=== PATIENT | female | born 1965 | race African-American/Black ===

== ENCOUNTER 2016-06-30 18:19 | Emergency (ER) | payer OTHER ==
[~2016-06-30 18:19] MED LIST: ALBU6.7H INH; AMBI5TAB PO; CALA240T PO; ENOX100P SQ; HYDR25TA35 PO; LISI-587 PO; OMEP20TA39 PO; POTA10IN2 PO; PROC10TA4 PO; ZOFR8TAB PO
[2016-06-30 18:21] VITALS: BP 110/70; PULSE 74; RESP 16; TEMP 97.8; O2SAT 96
--- NOTE | 2016-06-30 19:40 | PD ---
Physical Exam Time Seen by Provider: 19:37 Narrative 50yo F c/o not sleeping x24 hours, left arm pain secondary to lymphedema. A visitor with the patient states a friend called her and said she was acting tired and almost fell when she tried to stand up. Patient admits to taking Oxycodone 5mg. Denies fever, vomiting. Patient acting lethargic in triage. VSS. Patient seen in triage. Awaiting bed placement. Data Data Last Documented VS Vital Signs Date Time Temp Pulse Resp B/P Pulse Ox O2 Delivery O2 Flow Rate FiO2 06/30/16 18:21 97.8 74 16 110/70 96 Room Air [facility] Supervised Visit with ANTIONE: Babs Mcclure Jun 30, 2016 19:40
[2016-06-30] MEDS ORDERED: SODIUM CHLOR 0.9% 1000 ML INJ 1,000 ML IV SCH (20:29)
[2016-06-30] MEDS ORDERED: SODIUM CHLORIDE 0.9% FLUSH 10 ML FLUSH IVF PRN (20:30)
--- NOTE | 2016-06-30 20:49 | PD ---
HPI Chief Complaint: Altered Mental Status Time Seen by Provider: 20:24 Travel History International Travel<30 days: No Contact w/Intl Traveler<30days: No Traveled to known affect area: No PFSH Past Medical History Cancer: Yes (BREAST) Cardiovascular Problems: Yes (MURMUR) Chemotherapy: Yes (12/2015) Diabetes: No Diminished Hearing: No Endocrine: No Genitourinary: No Hepatitis: No Hiatal Hernia: No Hypertension: Yes Immune Disorder: No Implanted Vascular Access Dvce: Yes Musculoskeletal: No Neurologic: Yes (NEUROPATHY TOES/ FINGERS) Psychiatric: No Reproductive: No Respiratory: Yes (CHRONIC BRONCHITIS) Radiation Therapy: Yes (02/2016) Seizures: Yes Thyroid Disease: No Triglycerides - High: Yes Tetanus Vaccination: Unknown Influenza Vaccination: No ?: Not LMP: 06/09/2015 : 5 Para: 4 Miscarriage: 1 Past Surgical History AICD: No Body Medical Devices: INFUSE A PORT Joint Replacement: No Pacemaker: No Other Surgery: Yes (L breast lumpectomy- 2015, R CHEST PORT PLACEMENT) Social History Alcohol Use: No Tobacco Use: No Substance Use: No Allergies-Medications (Allergen,Severity, Reaction): Coded Allergies: No Known Allergies (Verified , 06/30/16) Reported Meds & Prescriptions Reported Meds & Active Scripts Active Reported Verapamil ER 24 HR (Verapamil HCl) 240 Mg Tab 240 Mg PO HS Ventolin Hfa 18 GM Inh (Albuterol Sulfate) 90 Mcg/Act Aer 2 Puff INH Q6H PRN Hydralazine (Hydralazine HCl) 25 Mg Tab 25 Mg PO DAILY Take with a meal Zolpidem (Zolpidem Tartrate) 10 Mg Tab 10 Mg PO HS Mirtazapine 45 Mg Tab 45 Mg PO HS Xarelto (Rivaroxaban) 20 Mg Tab 20 Mg PO DAILY Omeprazole 20 Mg Tab 20 Mg PO DAILY Zestoretic (Lisinopril-Hctz) 20-25 Mg Tab 1 Tab PO BID Oxycodone (Oxycodone HCl) 5 Mg Tab 5 Mg PO Q6HR PRN Ibuprofen 600 Mg Tab 600 Mg PO BID D3 Super Strength (Cholecalciferol) 2,000 Unit Cap 2,000 Units PO DAILY Imitrex (Sumatriptan Succinate) 25 Mg Tab 25 Mg PO AT ONSET OF MH PRN If a satisfactory response has not been obtained at 2 hours, a second dose may be administered Topiramate 50 Mg Tab 150 Mg PO BID Lamictal (Lamotrigine) 150 Mg Tab 150 Mg PO BID Ferrous Gluconate 240 Mg Tab 960 Mg PO DAILY Data Data Last Documented VS Vital Signs Date Time Temp Pulse Resp B/P Pulse Ox O2 Delivery O2 Flow Rate FiO2 06/30/16 20:58 100 Room Air 06/30/16 20:27 15 06/30/16 18:21 97.8 74 110/70 Orders Electrocardiogram (06/30/16 20:29) Complete Blood Count With Diff (06/30/16 20:29) Comprehensive Metabolic Panel (06/30/16 20:29) Creatine Kinase (Cpk) (06/30/16 20:29) Prothrombin Time / Inr (Pt) (06/30/16 20:29) Act Partial Throm Time (Ptt) (06/30/16 20:29) Troponin I (06/30/16 20:29) Thyroid Stimulating Hormone (06/30/16 20:29) Urinalysis - C+S If Indicated (06/30/16 20:29) Ua Includes Microscopic (06/30/16 20:29) Chest, Single Ap (06/30/16 20:29) Ct Brain W/O Iv Contrast(Rout) (06/30/16 20:29) Blood Glucose (06/30/16 20:29) Ecg Monitoring (06/30/16 20:29) Iv Access Insert/Monitor (06/30/16 20:29) Oximetry (06/30/16 20:29) Sodium Chloride 0.9% Flush (Ns Flush) (06/30/16 20:30) Sodium Chlor 0.9% 1000 Ml Inj (Ns 1000 M (06/30/16 20:29) Drug Screen, Random Urine (06/30/16 20:29) Alcohol (Ethanol) (06/30/16 20:29) Salicylates (Aspirin) (06/30/16 20:29) Tylenol (Acetaminophen) (06/30/16 20:29) Ed Urine Pregnancytest Poc (06/30/16 20:29) Topiramate (Topamax) (06/30/16 21:47) Heparin Central Flush (Heparin Central F (07/01/16 00:00) Labs Laboratory Tests Test 4/13/17 4/13/17 20:41 20:53 Urine Color YELLOW Urine Turbidity CLEAR Urine pH 7.5 Urine Specific [place] 1.019 Urine Protein NEG mg/dL Urine Glucose (UA) NEG mg/dL Urine Ketones NEG mg/dL Urine Occult Blood NEG Urine Nitrite NEG Urine Bilirubin NEG Urine Urobilinogen LESS THAN 2.0 MG/DL Urine Leukocyte Esterase TRACE Urine RBC LESS THAN 1 /hpf Urine WBC 4 /hpf Urine Squamous Epithelial <1 /hpf Cells Microscopic Urinalysis Comment CATH-CULT NOT IND Urine Opiates Screen NEG Urine Barbiturates Screen NEG Urine Amphetamines Screen NEG Urine Benzodiazepines Screen NEG Urine Cocaine Screen NEG Urine Cannabinoids Screen NEG White Blood Count 6.5 TH/MM3 Red Blood Count 4.14 MIL/MM3 Hemoglobin 8.5 GM/DL Hematocrit 27.7 % Mean Corpuscular Volume 67.0 FL Mean Corpuscular Hemoglobin 20.4 PG Mean Corpuscular Hemoglobin 30.5 % Concent Red Cell Distribution Width 19.6 % Platelet Count 144 TH/MM3 Mean Platelet Volume 8.8 FL Neutrophils (%) (Auto) 70.5 % Lymphocytes (%) (Auto) 20.7 % Monocytes (%) (Auto) 7.9 % Eosinophils (%) (Auto) 0.6 % Basophils (%) (Auto) 0.3 % Neutrophils # (Auto) 4.6 TH/MM3 Lymphocytes # (Auto) 1.3 TH/MM3 Monocytes # (Auto) 0.5 TH/MM3 Eosinophils # (Auto) 0.0 TH/MM3 Basophils # (Auto) 0.0 TH/MM3 CBC Comment AUTO DIFF Differential Comment AUTO DIFF CONFIRMED Target Cells 1+ Acanthocytes OCC Prothrombin Time 11.4 SEC Prothromb Time International 1.0 RATIO Ratio Activated Partial 27.1 SEC Thromboplast Time Sodium Level 141 MEQ/L Potassium Level 3.6 MEQ/L Chloride Level 109 MEQ/L Carbon Dioxide Level 25.4 MEQ/L Anion Gap 7 MEQ/L Blood Urea Nitrogen 21 MG/DL Creatinine 1.11 MG/DL Estimat Glomerular Filtration 63 ML/MIN Rate Random Glucose 101 MG/DL Calcium Level 8.8 MG/DL Total Bilirubin 0.4 MG/DL Aspartate Amino Transf 14 U/L (AST/SGOT) Alanine Aminotransferase 20 U/L (ALT/SGPT) Alkaline Phosphatase 61 U/L Total Creatine Kinase 101 U/L Troponin I LESS THAN 0.02 NG/ML Total Protein 7.7 GM/DL Albumin 3.7 GM/DL Thyroid Stimulating Hormone 0.875 uIU/ML 3rd Gen Salicylates Level LESS THAN 1.7 MG/DL Acetaminophen Level LESS THAN 2.0 MCG/ML Ethyl Alcohol Level LESS THAN 3 MG/DL Myles Melendez MD Jun 30, 2016 20:49
[2016-06-30 20:58] VITALS: O2SAT 100
[2016-06-30] MEDS ORDERED: TOPI1TAB36 PO (21:08)
[2016-06-30] MEDS ORDERED: IMIT25TA PO (21:08)
[2016-06-30] MEDS ORDERED: LAMO150 PO (21:08)
[2016-06-30] MEDS ORDERED: FERR240T PO (21:08)
[2016-06-30 21:12] LABS: AUTOMATED NEUTROPHIL # 4.6 TH/MM3 (1.8-7.7); BASOPHIL % 0.3 % (0.0-2.0); EOSINOPHIL % 0.6 % (0.0-4.0); HEMATOCRIT 27.7 % (35.0-46.0); LYMPH % 20.7 % (9.0-44.0); LYMPHOCYTE # 1.3 TH/MM3 (1.0-4.8); MEAN CORPUSCULAR HEMOGLOBIN 20.4 PG (27.0-34.0); MEAN CORPUSCULAR HGB CONC 30.5 % (32.0-36.0); MONO % 7.9 % (0.0-8.0); NEUT % 70.5 % (16.0-70.0); PLATELET COUNT 144 TH/MM3 (150-450); RED BLOOD COUNT 4.14 MIL/MM3 (4.00-5.30); RED CELL DISTRIBUTION WIDTH 19.6 % (11.6-17.2); WHITE BLOOD COUNT 6.5 TH/MM3 (4.0-11.0)
[2016-06-30 21:12] LABS: BLOOD, URINE NEG (NEG); GLUCOSE,URINE NEG (NEG); KETONE, URINE NEG (NEG); NITRITE,URINE NEG (NEG); PH, URINE 7.5 (5.0-8.5); SQUAMOUS EPITHELIAL CELL URINE <1 /hpf (0-5); URINE COLOR YELLOW (YELLW/STRAW)
[2016-06-30] MEDS ORDERED: XARE20TA PO (21:14)
[2016-06-30] MEDS ORDERED: CHOL20005 PO (21:14)
[2016-06-30] MEDS ORDERED: ZOLP10TA3 PO (21:14)
[2016-06-30] MEDS ORDERED: IBUP-232 PO (21:14)
[2016-06-30] MEDS ORDERED: OMEP20TA PO (21:14)
[2016-06-30] MEDS ORDERED: VENTAER INH (21:14)
[2016-06-30] MEDS ORDERED: MIRT45TA PO (21:14)
[2016-06-30] MEDS ORDERED: HYDR25TA35 PO (21:14)
[2016-06-30] MEDS ORDERED: LISI-587 PO (21:14)
[2016-06-30] MEDS ORDERED: OXYC-392 PO (21:14)
[2016-06-30] MEDS ORDERED: VERA1TAB17 PO (21:15)
[2016-06-30 21:16] LABS: HEMO FLAGS AUTO DIFF
[2016-06-30 21:17] LABS: COMMENT (UR) CATH-CULT NOT IND; CULTURE IF INDICATED CATH CULTURE NOT IND
[2016-06-30 21:18] LABS: AMPHETAMINE, URINE NEG (NEG); BARBITURATES, URINE NEG (NEG); COCAINE, URINE NEG (NEG)
[2016-06-30 21:24] LABS: APTT (PATIENT) 27.1 SEC (24.3-30.1); PROTHROMBIN TIME - PATIENT 11.4 SEC (9.8-11.6)
--- NOTE | 2016-06-30 21:28 | RADRPT ---
EXAM DATE/TIME: 06/30/2016 20:54 [facility] COMPARISON: CHEST SINGLE AP, July 15, 2015, 14:40. INDICATIONS : Short of breath. MEDICAL HISTORY : Carcinoma, breast. SURGICAL HISTORY : port placement ENCOUNTER: Initial ACUITY: 1 day PAIN SCORE: 3/10 LOCATION: Bilateral upper chest FINDINGS: A single view of the chest demonstrates the lungs to be symmetrically aerated without evidence of mas s, infiltrate or effusion. The cardiomediastinal contours are unremarkable. Osseous structures are intact. A right chest port is present and is accessed. CONCLUSION: No acute disease. David Swanson MD on June 30, 2016 at 21:26 Board Certified Radiologist. This report was verified electronically.
--- NOTE | 2016-06-30 21:38 | RADRPT ---
EXAM DATE/TIME: 06/30/2016 21:23 [facility] COMPARISON: No previous studies available for comparison. INDICATIONS : Altered, cant sleep RADIATION DOSE: 47.90 CTDIvol (mGy) MEDICAL HISTORY : Aneurysm, intracranial. Breast cancer. SURGICAL HISTORY : None. ENCOUNTER: Initial ACUITY: 1 day PAIN SCALE: 0/10 LOCATION: Bilateral cranial TECHNIQUE: Multiple contiguous axial images were obtained of the head. Using automated exposure control and adj ustment of the mA and/or kV according to patient size, radiation dose was kept as low as reasonably a chievable to obtain optimal diagnostic quality images. FINDINGS: CEREBRUM: The ventricles are normal for age. No evidence of midline shift, mass lesion, hemorrhage or acute in farction. No extra-axial fluid collections are seen. POSTERIOR FOSSA: The cerebellum and brainstem are intact. The 4th ventricle is midline. The cerebellopontine angle i s unremarkable. EXTRACRANIAL: The visualized portion of the orbits is intact. SKULL: The calvaria is intact. No evidence of skull fracture. CONCLUSION: Unremarkable examination. Eliezer Duff MD on June 30, 2016 at 21:35 Board Certified Radiologist. This report was verified electronically.
[2016-06-30 21:41] LABS: ANION GAP 7 MEQ/L (5-15); AST (GOT) 14 U/L (15-37); BICARBONATE 25.4 MEQ/L (21.0-32.0); BLOOD UREA NITROGEN 21 MG/DL (7-18); CHLORIDE 109 MEQ/L (98-107); GLOMERULAR FILTRATION RATE 63 ML/MIN (>89); POTASSIUM 3.6 MEQ/L (3.5-5.1); SODIUM (NA) 141 MEQ/L (136-145)
[2016-06-30 21:52] LABS: ACETAMINOPHEN LESS THAN 2.0 MCG/ML (10.0-30.0); ALKALINE PHOSPHATASE 61 U/L (45-117); ALT (GPT) 20 U/L (10-53); CREATINE KINASE 101 U/L (26-192); TOTAL BILIRUBIN ADULT 0.4 MG/DL (0.2-1.0)
[2016-06-30 22:37] LABS: ACANTHOCYTES OCC (NORMAL); SCAN/DIFF AUTO DIFF CONFIRMED; TARGET CELLS 1+ (NORMAL)
--- NOTE | 2016-06-30 22:47 | EKG ---
Date Performed: 06/30/2016 Time Performed: 20:45:15 PTAGE: 50 years EKG: Sinus rhythm RIGHT BUNDLE BRANCH BLOCK ABNORMAL ECG PREVIOUS TRACING : 05/16/2014 14.38 No significant change from previous tracing noted. DOCTOR: Valeriano Vyas Interpretating Date/Time 06/30/2016 22:46:10
--- NOTE | 2016-06-30 23:42 | PD ---
HPI Chief Complaint: Altered Mental Status Time Seen by Provider: 20:24 Travel History International Travel<30 days: No Contact w/Intl Traveler<30days: No Traveled to known affect area: No History of Present Illness HPI Patient is a 50-year-old female with a history of breast cancer in remission presents emergency department for altered mental status. Per the friends patient was just feeling more somnolent today. Apparently the patient approximately 4 hours prior to arrival took an oxycodone which was a friends because she was having some generalized aches and pains and couldn't sleep last night. Afterwards the patient thinks she had a seizure. No seizure activity was witnessed but the patient does state that she continues to have muscle soreness which she is common after seizure. She takes Topamax as well as Lamictal for seizures. She states she's been taking his medicines. On arrival she is somewhat somnolent but answers all questions appropriately. She does not have any complaints of chest pain abdominal pain headache neck pain. She does follow with an oncologist states she's been given a clean bill of health the far as her cancer goes. PFSH Past Medical History Cancer: Yes (BREAST) Cardiovascular Problems: Yes (MURMUR) Chemotherapy: Yes (12/2015) Diabetes: No Diminished Hearing: No Endocrine: No Genitourinary: No Hepatitis: No Hiatal Hernia: No Hypertension: Yes Immune Disorder: No Implanted Vascular Access Dvce: Yes Musculoskeletal: No Neurologic: Yes (NEUROPATHY TOES/ FINGERS) Psychiatric: No Reproductive: No Respiratory: Yes (CHRONIC BRONCHITIS) Radiation Therapy: Yes (02/2016) Seizures: Yes Thyroid Disease: No Triglycerides - High: Yes Tetanus Vaccination: Unknown Influenza Vaccination: No ?: Not LMP: 06/09/2015 : 5 Para: 4 Miscarriage: 1 Past Surgical History AICD: No Body Medical Devices: INFUSE A PORT Joint Replacement: No Pacemaker: No Other Surgery: Yes (L breast lumpectomy- 2016, R CHEST PORT PLACEMENT) Social History Alcohol Use: No Tobacco Use: No Substance Use: No Allergies-Medications (Allergen,Severity, Reaction): Coded Allergies: No Known Allergies (Verified , 06/30/16) Reported Meds & Prescriptions Reported Meds & Active Scripts Active Reported Verapamil ER 24 HR (Verapamil HCl) 240 Mg Tab 240 Mg PO HS Ventolin Hfa 18 GM Inh (Albuterol Sulfate) 90 Mcg/Act Aer 2 Puff INH Q6H PRN Hydralazine (Hydralazine HCl) 25 Mg Tab 25 Mg PO DAILY Take with a meal Zolpidem (Zolpidem Tartrate) 10 Mg Tab 10 Mg PO HS Mirtazapine 45 Mg Tab 45 Mg PO HS Xarelto (Rivaroxaban) 20 Mg Tab 20 Mg PO DAILY Omeprazole 20 Mg Tab 20 Mg PO DAILY Zestoretic (Lisinopril-Hctz) 20-25 Mg Tab 1 Tab PO BID Oxycodone (Oxycodone HCl) 5 Mg Tab 5 Mg PO Q6HR PRN Ibuprofen 600 Mg Tab 600 Mg PO BID D3 Super Strength (Cholecalciferol) 2,000 Unit Cap 2,000 Units PO DAILY Imitrex (Sumatriptan Succinate) 25 Mg Tab 25 Mg PO AT ONSET OF MH PRN If a satisfactory response has not been obtained at 2 hours, a second dose may be administered Topiramate 50 Mg Tab 150 Mg PO BID Lamictal (Lamotrigine) 150 Mg Tab 150 Mg PO BID Ferrous Gluconate 240 Mg Tab 960 Mg PO DAILY Review of Systems Except as stated in HPI: all other systems reviewed are Neg Physical Exam Narrative GENERAL: Well-developed well-nourished, somnolent. SKIN: Focused skin assessment warm/dry. HEAD: Atraumatic. Normocephalic. EYES: Pupils equal and round. No scleral icterus. No injection or drainage. ENT: No nasal bleeding or discharge. Mucous membranes pink and moist. No tongue laceration. NECK: Trachea midline. No JVD. CARDIOVASCULAR: Regular rate and rhythm. No murmur appreciated. RESPIRATORY: No accessory muscle use. Clear to auscultation. Breath sounds equal bilaterally. GASTROINTESTINAL: Abdomen soft, non-tender, nondistended. Hepatic and splenic margins not palpable. MUSCULOSKELETAL: No obvious deformities. No clubbing. No cyanosis. No edema. NEUROLOGICAL: Awake and alert but somnolent. Oriented 4. Cranial nerves II through XII are grossly intact and nonfocal, 5 out of 5 strength in all 4 extremity's. Normal speech. Sensations intact. PSYCHIATRIC: Appropriate mood and affect; insight and judgment normal. Data Data Last Documented VS Vital Signs Date Time Temp Pulse Resp B/P Pulse Ox O2 Delivery O2 Flow Rate FiO2 06/30/16 20:58 100 Room Air 06/30/16 20:27 15 06/30/16 18:21 97.8 74 110/70 Orders Electrocardiogram (06/30/16 20:29) Complete Blood Count With Diff (06/30/16 20:29) Comprehensive Metabolic Panel (06/30/16 20:29) Creatine Kinase (Cpk) (06/30/16 20:29) Prothrombin Time / Inr (Pt) (06/30/16 20:29) Act Partial Throm Time (Ptt) (06/30/16 20:29) Troponin I (06/30/16 20:29) Thyroid Stimulating Hormone (06/30/16 20:29) Urinalysis - C+S If Indicated (06/30/16 20:29) Ua Includes Microscopic (06/30/16 20:) Chest, Single Ap (06/30/16 20:29) Ct Brain W/O Iv Contrast(Rout) (06/30/16 20:29) Blood Glucose (06/30/16 20:29) Ecg Monitoring (06/30/16 20:29) Iv Access Insert/Monitor (06/30/16 20:29) Oximetry (06/30/16 20:29) Sodium Chloride 0.9% Flush (Ns Flush) (06/30/16 20:30) Sodium Chlor 0.9% 1000 Ml Inj (Ns 1000 M (06/30/16 20:29) Drug Screen, Random Urine (06/30/16 20:29) Alcohol (Ethanol) (06/30/16 20:29) Salicylates (Aspirin) (06/30/16 20:29) Tylenol (Acetaminophen) (06/30/16 20:29) Ed Urine Pregnancytest Poc (06/30/16 20:29) Topiramate (Topamax) (06/30/16 21:47) Heparin Central Flush (Heparin Central F (07/01/16 00:00) Labs Laboratory Tests Test 06/30/16 06/30/16 20:41 20:53 Urine Color YELLOW Urine Turbidity CLEAR Urine pH 7.5 Urine Specific [place] 1.019 Urine Protein NEG mg/dL Urine Glucose (UA) NEG mg/dL Urine Ketones NEG mg/dL Urine Occult Blood NEG Urine Nitrite NEG Urine Bilirubin NEG Urine Urobilinogen LESS THAN 2.0 MG/DL Urine Leukocyte Esterase TRACE Urine RBC LESS THAN 1 /hpf Urine WBC 4 /hpf Urine Squamous Epithelial <1 /hpf Cells Microscopic Urinalysis Comment CATH-CULT NOT IND Urine Opiates Screen NEG Urine Barbiturates Screen NEG Urine Amphetamines Screen NEG Urine Benzodiazepines Screen NEG Urine Cocaine Screen NEG Urine Cannabinoids Screen NEG White Blood Count 6.5 TH/MM3 Red Blood Count 4.14 MIL/MM3 Hemoglobin 8.5 GM/DL Hematocrit 27.7 % Mean Corpuscular Volume 67.0 FL Mean Corpuscular Hemoglobin 20.4 PG Mean Corpuscular Hemoglobin 30.5 % Concent Red Cell Distribution Width 19.6 % Platelet Count 144 TH/MM3 Mean Platelet Volume 8.8 FL Neutrophils (%) (Auto) 70.5 % Lymphocytes (%) (Auto) 20.7 % Monocytes (%) (Auto) 7.9 % Eosinophils (%) (Auto) 0.6 % Basophils (%) (Auto) 0.3 % Neutrophils # (Auto) 4.6 TH/MM3 Lymphocytes # (Auto) 1.3 TH/MM3 Monocytes # (Auto) 0.5 TH/MM3 Eosinophils # (Auto) 0.0 TH/MM3 Basophils # (Auto) 0.0 TH/MM3 CBC Comment AUTO DIFF Differential Comment AUTO DIFF CONFIRMED Target Cells 1+ Acanthocytes OCC Prothrombin Time 11.4 SEC Prothromb Time International 1.0 RATIO Ratio Activated Partial 27.1 SEC Thromboplast Time Sodium Level 141 MEQ/L Potassium Level 3.6 MEQ/L Chloride Level 109 MEQ/L Carbon Dioxide Level 25.4 MEQ/L Anion Gap 7 MEQ/L Blood Urea Nitrogen 21 MG/DL Creatinine 1.11 MG/DL Estimat Glomerular Filtration 63 ML/MIN Rate Random Glucose 101 MG/DL Calcium Level 8.8 MG/DL Total Bilirubin 0.4 MG/DL Aspartate Amino Transf 14 U/L (AST/SGOT) Alanine Aminotransferase 20 U/L (ALT/SGPT) Alkaline Phosphatase 61 U/L Total Creatine Kinase 101 U/L Troponin I LESS THAN 0.02 NG/ML Total Protein 7.7 GM/DL Albumin 3.7 GM/DL Thyroid Stimulating Hormone 0.875 uIU/ML 3rd Gen Salicylates Level LESS THAN 1.7 MG/DL Acetaminophen Level LESS THAN 2.0 MCG/ML Ethyl Alcohol Level LESS THAN 3 MG/DL [facility] Medical Decision Making Medical Screen Exam Complete: Yes Emergency Medical Condition: Yes Differential Diagnosis Postictal state, opiate sedation, altered mental status, somnolence, fatigue, anemia. Narrative Course Patient was roomed in the emergency department. Mental status slowly improved while in the emergency department. This could be consistent with a postictal state however patient is fairly unsure as to whether she had a seizure. She does have some shoulder pain and was offered pain medicine and declined. Lab work obtained shows some mild anemia with a hemoglobin of 8.5 otherwise fairly unremarkable CBC CMP, alcohol salicylates negative, drug screen negative. UA, UPT negative. Chest x-ray negative, CT head negative. Discussed results with the patient as well as her daughter and her friend. Patient's friend is couple taking her home and watching after her for the night. She states they live together. At this point I discussed with her that I'm comfortable with this course of action is a seen fairly reliable. Discussed need for follow-up with a primary care physician and return to ED criteria. Diagnosis Primary Impression: Altered mental status Qualified Code: R41.82 - Altered mental status, unspecified altered mental status type Patient Instructions: General Instructions, Recurrent Seizures in Adults (GEN) Disposition: 01 DISCHARGE HOME Condition: Stable Myles Melendez MD Jun 30, 2016 23:42
== END 2016-07-01 00:27 | disposition home or self-care (01) ==
LOC: NEPD 18:19
DX: R41.82 Altered mental status, unspecified (principal); R56.9 Unspecified convulsions; I10 Essential (primary) hypertension; M79.602 Pain in left arm
CPT/HCPCS: 70450; 71010; 80053; 80201; 80307; 81001; 82550; 84443; 84484; 84703; 85025; 85610; 85730; 93005; 96360; 99285; J1642; J7030

== ENCOUNTER → 2016-07-15 | Outpatient (CLI) | payer OTHER ==
[~2016-07-15] MED LIST changes: -ALBU6.7H INH; -AMBI5TAB PO; -CALA240T PO; +CHOL20005 PO; -ENOX100P SQ; +FERR240T PO; +IBUP-232 PO; +IMIT25TA PO; +LAMO150 PO; +MIRT45TA PO; +OMEP20TA PO; -OMEP20TA39 PO; +OXYC-392 PO; -POTA10IN2 PO; -PROC10TA4 PO; +TOPI1TAB36 PO; +VENTAER INH; +VERA1TAB17 PO; +XARE20TA PO; -ZOFR8TAB PO; +ZOLP10TA3 PO
== END ==
LOC: CLAB 10:48
PROVIDERS: ATTEND Psychiatry & Neurology Neurology
DX: G93.3 Postviral and related fatigue syndromes (principal); E88.9 Metabolic disorder, unspecified; G40.509 Epileptic seizures related to external causes, not intractable, without status epilepticus; Z51.81 Encounter for therapeutic drug level monitoring
CPT/HCPCS: 36415; 82140